=== PATIENT | female | born 1945 | race Caucasian/White ===

== ENCOUNTER 2017-07-02 09:01 | Emergency (ER) | payer BC ==
[2017-07-02 09:33] VITALS: BP 162/79
--- NOTE | 2017-07-02 10:06 | UC ---
Ear Complaint HPI - History of Current Complaint Chief Complaint: UCEar Stated Complaint: EAR COMPLAINT Time Seen by Provider: 07/02/17 09:39 Hx Obtained From: Patient ?: No Onset/Duration: Gradual Onset - L ear pain over past 3 days, getting worse since last night. put earwax removal in last pm w/o relief Severity Initially: Mild Severity Currently: Moderate Associated Signs/Symptoms: Negative: Discharge, Hearing Loss, URI Symptoms Related History: Seasonal Allergies - Allergies/Home Medications Allergies/Adverse Reactions: Allergies Allergy/AdvReac Type Severity Reaction Status Date / Time No Known Allergies Allergy Verified 07/02/17 09:33 PMH/Surg Hx/FS Hx/Imm Hx Previously Healthy: Yes Endocrine History: Dyslipidemia - Surgical History Surgical History: Yes Surgery Procedure, Year, and Place: left leg surgery 1987 - Family History Known Family History: Positive: None - Social History Occupation: Unemployed Lives: With Family Alcohol Use: Weekly Substance Use Type: None Smoking Status (MU): Never Smoked Tobacco Review of Systems Constitutional: Negative ENT: Ear Ache - R Respiratory: Negative Cardiovascular: Negative Psychological: Negative All Other Systems Reviewed And Are Negative: Yes Physical Exam Triage Information Reviewed: Yes Appearance: Well-Appearing, No Pain Distress, Well-Nourished Vital Signs: Initial Vital Signs Temp 97.8 F 07/02/17 09:28 Pulse 77 07/02/17 09:28 Resp 18 07/02/17 09:28 BP 162/79 07/02/17 09:28 Pulse Ox 100 07/02/17 09:28 Vital Signs Reviewed: Yes ENT: Positive: Pharynx normal, Other: - R TM occluded by cerumen L TM normal. Negative: Nasal drainage Neck exam: Normal Neck: Positive: No Lymphadenopathy Respiratory Exam: Normal Cardiovascular Exam: Normal Psychological Exam: Normal Skin Exam: Normal Procedures - Procedure Summary Procedure Summary: R ear flushed with warm water by RN. After irrigation: R TM erythemic and dull Ear Complaint Course/Dx - Differential Dx/Diagnosis Differential Diagnosis/HQI/PQRI: Cerumen Impaction, Foreign Body, Otitis Externa , Otitis Media Provider Diagnoses: R OM Discharge - Discharge Plan Condition: Stable Disposition: HOME Prescriptions: Amoxicillin/Clavulanate TAB* [Augmentin TAB 875*] 875 mg PO BID #20 tab Patient Education Materials: Otitis Media (ED) Referrals: Bernarda Paniagua MD [Primary Care Provider] - 2 Days (if no better) Additional Instructions: use tylenol for pain relief as directed Take augmentin as directed
== END 2017-07-02 10:46 | disposition home or self-care (01) ==
LOC: UCEAST 09:01
DX: H66.91 Otitis media, unspecified, right ear (principal); H61.21 Impacted cerumen, right ear; E78.5 Hyperlipidemia, unspecified
CPT/HCPCS: 99213; G0463